=== PATIENT | female | born 1945 | race American Indian/Alaskan Native ===

== ENCOUNTER 2018-08-03 11:32 | Inpatient (IN) | payer MEDICARE ==
[~2018-08-03 11:32] MED LIST: ANCEF/STERILE WATER 2 GM/20 ML IV NR
[2018-08-03] MEDS ORDERED: DILAUDID IV NR (13:06)
[2018-08-03] MEDS ORDERED: PEPCID IV NR (13:07)
[2018-08-03] MEDS: LACTATED RINGERS 1,000 ML IV SCH ×2 (13:15→22:51)
--- NOTE | 2018-08-03 13:15 | Anesthesia Day of Surgery ---
Anesthesia Day of Surgery - Day of Surgery Patient Examined: Yes Patient H&P Reviewed: Yes Patient is NPO: Yes
--- NOTE | 2018-08-03 13:15 | Anesthesia Consultation ---
Anesthesia Consult and Med Hx Date of service: 08/03/18 - Airway Anesthetic Teeth Evaluation: Good ROM Head & Neck: Adequate Mental/Hyoid Distance: Adequate Mallampati Class: Class II Intubation Access Assessment: Good - Pulmonary Exam CTA: Yes - Cardiac Exam Cardiac Exam: No Murmur - Pre-Operative Health Status ASA Pre-Surgery Classification: ASA3 Proposed Anesthetic Plan: General - Pulmonary Hx Smoking: Yes (STOPPED 1983) Hx Asthma: Yes (DAILY INHALERS) Hx Sleep Apnea: No (PANCHITO PRE SCREEN HIGH RISK) - Cardiovascular System Hx Hypertension: Yes (X 15 YRS) Hx Angina: No - Central Nervous System CVA: Yes ("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
[2018-08-03] MEDS ORDERED: XYLOCAINE 1%/ EPI 1:100,000 INFILTRATI ONE ×2 (13:19→14:36)
[2018-08-03] MEDS ORDERED: ANTIBIOTIC OINT TP ONE ×2 (13:19→13:20)
[2018-08-03] MEDS ORDERED: MARCAINE 0.25% INFILTRATI ONE ×2 (13:19→14:35)
[2018-08-03] MEDS ORDERED: DIPRIVAN 10 MG/ML IV ONE (13:21)
[2018-08-03] MEDS ORDERED: XYLOCAINE MPF 2% ONE (13:21)
[2018-08-03] MEDS ORDERED: SUBLIMAZE ONE ×3 (13:21→16:24)
[2018-08-03] MEDS ORDERED: VERSED ONE (13:24)
[2018-08-03] MEDS ORDERED: VERSED IV SCH (13:24)
[2018-08-03] MEDS ORDERED: ZOFRAN ONE (14:26)
[2018-08-03] MEDS ORDERED: NACL 0.9% IR ONE (14:37)
[2018-08-03] MEDS ORDERED: TYLENOL PO PRN (16:41)
--- NOTE | 2018-08-03 16:41 | Post Operative Note ---
Pre-op diagnosis: fractured left ankle Post-op diagnosis: same Findings: See operative report. Procedure: ORIF left ankle, fibula Anesthesia: GETA Surgeon: SENA MICHAELS Estimated blood loss: minimal Pathology: none Condition: stable Disposition: observation
[2018-08-03] MEDS ORDERED: SODIUM CHLORIDE FLUSH SYRINGE 10 ML IV NR (17:00)
[2018-08-03] MEDS ORDERED: ZOFRAN IV PRN (17:05)
[2018-08-03] MEDS: DILAUDID IV PRN ×3 (17:10→23:52)
[2018-08-03] MEDS ORDERED: DILAUDID ONE (17:49)
--- NOTE | 2018-08-03 18:36 | Operative Report ---
SURGEON: Zeyad Mason DPM MANAGER CASE MANAGEMENT: None. PREOPERATIVE DIAGNOSIS: Fractured left ankle. POSTOPERATIVE DIAGNOSIS: Fractured left ankle. PROCEDURE: Open reduction and internal fixation, left ankle, lateral malleolus and syndesmosis. ANESTHESIA: General inhalational anesthetic with local consisting of 1% lidocaine with epinephrine and 0.25 Marcaine plain, 50:50 mixture x 10 mL. HEMOSTASIS: Pneumatic thigh tourniquet 350 mmHg x 124 minutes. ESTIMATED BLOOD LOSS: Less than 20 mL. MATERIALS: Synthes 7-hole 1/3 tubular locking plate with corresponding screws, each measuring 4 mm in diameter and a Synthes partially threaded 40 mm x 4.0 partially threaded cancellous screw and 26 gauge surgical stainless steel wire. INJECTABLES: Local as above. PATHOLOGY: None. COMPLICATIONS: None. OPERATIVE SUMMARY: On this date, the patient was deemed an appropriate surgical candidate, brought to the operating room and placed on the operating table in normal supine position. Following induction of adequate general inhalational anesthesia, the left foot, ankle, and leg were prepped and draped in the usual sterile fashion. A pneumatic thigh tourniquet was applied with padding and after exsanguination was inflated, the following procedure was then carried out. Open reduction and internal fixation of left ankle: Attention was directed to the lateral aspect of left ankle where a long linear incision was placed overlying the fibula. Dissection was carried through the skin layer down to the level of superficial fascia with care to protect neurovascular structures. Electrocautery was deemed necessary for surgical hemostasis. Dissection was carried through this layer down to the level of deep fascia. Deep fascia was notably hemorrhagic. A longitudinal incision was carried through the deep fascia to the level of the fibula. A long oblique fracture was identified and comminution was noted at the fracture piece. At this time, reduction forceps were brought in and the fracture was reduced under fluoroscopic image intensifier. Multiple attempts were made to repair with interosseous compression the fragment. Due to the orientation and severe comminution of the pieces along with osteoporotic nature of the bone, it was impossible to gain any place to fixate the lateral malleolus. I then attempted to reduce the entire fracture and maintain its alignment utilizing pins and long locking plate. Again, the fragment proved to be unstable and continued to telescope proximally. I removed all of the hardware and then reduced the fracture completely. Again, image intensifier was used to identify this. I then went ahead and placed a trans-syndesmotic screw between the lateral malleolus into the tibia at approximately a 30-degree anterior angle. This kept the distal fragment out to length. The intervening bone fragments laid relatively in decent alignment; however, again there were multiple fragmentations here. I went ahead and used 26-gauge stainless wire to then secure these pieces together. The image intensifier was used and accurate reconstruction of the joint was noted along with reduction of the medial clear space. At this time, I went ahead and placed a locking plate in standard AO fashion along the lateral malleolus. Excellent reduction was noted and excellent alignment of the joint was appreciated. The wound was flushed with copious amounts of normal sterile saline. Closure was then carried out with 3-0 Vicryl to close the periosteal and deep fascial layer, followed by 4-0 Vicryl and a 4-0 nylon suture in running fashion. Again, stress of the medial side after repair of the lateral malleolus demonstrated no opening identified. At this time, it was deemed not necessary to go forward with another incision given the extensive tourniquet time and stability of the construct. Therefore, infiltrated the lateral ankle with local mixture, applied a dry sterile dressing and tourniquet was deflated with normal capillary refill returning all the digits. A well-padded posterior splint was applied. The patient tolerated the above procedure and anesthesia well without complications. Vital signs are stable throughout. She will be admitted for 23-hour observation to [facility] for postoperative pain management and antibiotics. JOB# [id number] RUBIO/TESS
[2018-08-03] MEDS: PERCOCET 5/325 PO PRN (20:04)
[2018-08-03] MEDS ORDERED: TORADOL IV ONE (22:00)
[2018-08-03] MEDS: ANCEF/NS 1 GM/50 ML 1 GM/50 ML BAG IV SCH (23:46)
[2018-08-04] MEDS: PERCOCET 5/325 PO PRN ×3 (03:41→22:02)
[2018-08-04] MEDS: ANCEF/NS 1 GM/50 ML 1 GM/50 ML BAG IV SCH (07:04)
--- NOTE | 2018-08-04 07:41 | XRay Report ---
LEFT ANKLE, 2 VIEWS: History: Left ankle fracture. Findings: 2 fluoroscopic images of the left ankle are presented demonstrating open reduction and internal fixation of a distal fibular fracture. A screw also transverses the distal fibula and tibia. Alignment appears anatomic. There is diffuse soft tissue swelling. Impression: Open reduction and internal fixation of a left ankle fracture.
--- NOTE | 2018-08-04 12:10 | Progress Note ---
Assessment and Plan 1. S/P ORIF left ankle - Maintain NWB left side - Encouraged dangling with lunch - PO meds only for now - Instructed further pain management when she leaves will be with Dr. Youngblood; she will call their office today. - Must maintain NWB; she has walker with wheels, crutches, and a wheelchair at home - OT to see patient. Will need some assistance with transfer. she has her to help her around as well. - Patient has rx for percocet and antibiotic for use upon D/C (given at preop.) - Will be in touch with nursing regarding progress. she may go home when ready and stable, will await OT assessment. Subjective Date of service: 08/04/18 Principal diagnosis: post op ORIF left ankle Objective - Constitutional Vitals: Vital Signs - 12hr 08/04/18 08/04/18 08/04/18 00:22 03:41 04:41 Temperature Pulse Rate Pulse Rate [ Left Radial] Respiratory 16 16 17 Rate Blood Pressure O2 Sat by Pulse Oximetry 08/04/18 08/04/18 08/04/18 04:49 04:50 07:02 Temperature 98.2 F 98.2 F Pulse Rate 91 H 96 H 90 Pulse Rate [ Left Radial] Respiratory 120 H 17 18 Rate Blood Pressure 124/46 138/50 O2 Sat by Pulse 96 98 98 Oximetry 08/04/18 08/04/18 08:29 11:07 Temperature 97.9 F Pulse Rate 90 Pulse Rate [ 69 Left Radial] Respiratory 20 Rate Blood Pressure 146/57 O2 Sat by Pulse 96 98 Oximetry General appearance: Present: no acute distress - EENT Eyes: PERRL ENT: hearing intact - Respiratory Respiratory effort: normal - Breasts Breasts: deferred Extremities: no ischemia, normal temperature (Left foot elevated with ice packs, CFT 3 secs to all toes, splint clean and dry) Medications & Allergies - Medications Allergies/Adverse Reactions: Allergies AJ Inhibitors Allergy (Verified 07/21/18 16:42) Swelling Sulfa (Sulfonamide Antibiotics) Allergy (Verified 07/21/18 16:42) Swelling sulfamethoxazole [From Bactrim] Allergy (Verified 07/21/18 16:42) Swelling trimethoprim [From Bactrim] Allergy (Verified 07/21/18 16:42) Swelling Home Medications: Home Medications Medication Instructions Recorded Confirmed Last Taken Type ALBUTEROL NEB's [Proventil] 2.5 mg IH TID PRN 07/21/18 08/03/18 3 Months Ago History ~05/03/18 ALPRAZolam [Xanax] 1 mg PO BID 07/21/18 07/21/18 08/02/18 History Aspirin [Aspir-Low] 81 mg PO DAILY 07/21/18 08/03/18 2 Weeks Ago History ~07/20/18 Atenolol [Tenormin] 100 mg PO DAILY 07/21/18 07/21/18 08/02/18 History Budesonide/Formoterol Fumarate 2 puff IH DAILY 07/21/18 07/21/18 08/03/18 08:00 History [Symbicort 80-4.5 Mcg Inhaler] Cyclobenzaprine HCl [Flexeril 5 MG 5 mg PO BID 07/21/18 07/21/18 08/02/18 History TAB] Donepezil [Aricept] 10 mg PO QDAY 07/21/18 07/21/18 08/02/18 History Gabapentin [Neurontin] 300 mg PO TID 07/21/18 07/21/18 08/02/18 History Ibuprofen [Ibu] 600 mg PO PRN PRN 07/21/18 08/03/18 2 Weeks Ago History ~07/20/18 Ipratropium [place] 1 sprays IH DAILY 07/21/18 07/21/18 08/02/18 History Montelukast [Singulair] 10 mg PO QPM 07/21/18 07/21/18 08/02/18 History Omeprazole Magnesium [Prilosec Otc] 40 mg PO DAILY 07/21/18 07/21/18 08/02/18 History Potassium Chloride [K-Dur] 40 meq PO QDAY 07/21/18 07/21/18 08/02/18 History Simvastatin [Zocor] 40 mg PO QHS 07/21/18 07/21/18 08/02/18 History Venlafaxine HCl [Venlafaxine HCl 300 mg PO DAILY 07/21/18 07/21/18 08/02/18 History ER] hydroCHLOROthiazide [HCTZ] 50 mg PO QDAY 07/21/18 07/21/18 08/03/18 08:00 Histor y lamoTRIgine [Lamictal] 150 mg PO DAILY 07/21/18 07/21/18 08/02/18 History rOPINIRole [Requip] 0.25 mg PO QHS 07/21/18 07/21/18 08/02/18 History Active Medications: Generic Name Dose Route Start Last Admin Trade Name Freq PRN Reason Stop Dose Admin Acetaminophen 650 mg 08/03/18 16:41 Tylenol PO Q4H PRN Pain MILD(1-3)/Fever >100.5/POSEY Enoxaparin Sodium 40 mg 08/04/18 10:00 Lovenox SUB-Q QDAY JOSE ROBERTO Lactated Ringer's 1,000 mls @ 75 mls/hr 08/03/18 13:07 08/03/18 22:51 Lactated Ringers IV 75 mls/hr DIRECT JOSE ROBERTO Administration Morphine Sulfate 4 mg 08/03/18 16:41 Morphine IV Q4H PRN Pain , Severe (7-10) Multivitamins 1 each 08/04/18 10:00 Theragran Tab PO QDAY JOSE ROBERTO Oxycodone/Acetaminophen 2 tab 08/03/18 16:41 08/04/18 09:48 Percocet 5/325 PO 2 tab Q6H PRN Administration Pain, Moderate (4-6) Sodium Chloride 10 ml 08/03/18 17:00 Sodium Chloride Flush Syringe 10 Ml IV 08/04/18 16:59 PRN NR
[2018-08-04] MEDS: LOVENOX SUB-Q SCH (12:41)
[2018-08-04] MEDS: THERAGRAN Tab PO SCH (12:42)
[2018-08-04] MEDS: LACTATED RINGERS 1,000 ML IV SCH (12:42)
[2018-08-04] MEDS: MORPHINE IV PRN (17:35)
[2018-08-05] MEDS: PERCOCET 5/325 PO PRN ×3 (03:03→17:57)
[2018-08-05] MEDS: LACTATED RINGERS 1,000 ML IV SCH ×2 (03:03→17:52)
[2018-08-05] MEDS: MORPHINE IV PRN ×4 (09:13→20:23)
[2018-08-05] MEDS: THERAGRAN Tab PO SCH (09:54)
[2018-08-05] MEDS: LOVENOX SUB-Q SCH (09:55)
--- NOTE | 2018-08-05 15:33 | Progress Note ---
Subjective Date of service: 08/05/18 Principal diagnosis: post op ORIF left ankle Objective - Exam Narrative Exam: Patient seen at bedside, doing well. Awaiting placement for rehab. - Constitutional Vitals: Vital Signs - 12hr 08/05/18 08/05/18 08/05/18 04:28 04:29 05:40 Temperature 98.0 F Pulse Rate 85 76 78 Respiratory 17 Rate Blood Pressure 135/55 Blood Pressure 135/55 [Left] O2 Sat by Pulse 95 96 90 Oximetry 08/05/18 07:37 Temperature 98.0 F Pulse Rate 85 Respiratory 20 Rate Blood Pressure 138/64 Blood Pressure [Left] O2 Sat by Pulse 97 Oximetry Extremity abnormal: edema (Mild edema consistent with surgical repair. toes all warm and with normal cap refill.) Medications & Allergies - Medications Allergies/Adverse Reactions: Allergies AJ Inhibitors Allergy (Verified 07/21/18 16:42) Swelling Sulfa (Sulfonamide Antibiotics) Allergy (Verified 07/21/18 16:42) Swelling sulfamethoxazole [From Bactrim] Allergy (Verified 07/21/18 16:42) Swelling trimethoprim [From Bactrim] Allergy (Verified 07/21/18 16:42) Swelling Home Medications: Home Medications Medication Instructions Recorded Confirmed Last Taken Type ALBUTEROL NEB's [Proventil] 2.5 mg IH TID PRN 07/21/18 08/03/18 3 Months Ago History ~05/03/18 ALPRAZolam [Xanax] 1 mg PO BID 07/21/18 07/21/18 08/02/18 History Aspirin [Aspir-Low] 81 mg PO DAILY 07/21/18 08/03/18 2 Weeks Ago History ~07/20/18 Atenolol [Tenormin] 100 mg PO DAILY 07/21/18 07/21/18 08/02/18 History Budesonide/Formoterol Fumarate 2 puff IH DAILY 07/21/18 07/21/18 08/03/18 08:00 History [Symbicort 80-4.5 Mcg Inhaler] Cyclobenzaprine HCl [Flexeril 5 MG 5 mg PO BID 07/21/18 07/21/18 08/02/18 History TAB] Donepezil [Aricept] 10 mg PO QDAY 07/21/18 07/21/18 08/02/18 History Gabapentin [Neurontin] 300 mg PO TID 07/21/18 07/21/18 08/02/18 History Ibuprofen [Ibu] 600 mg PO PRN PRN 07/21/18 08/03/18 2 Weeks Ago History ~07/20/18 Ipratropium [place] 1 sprays IH DAILY 07/21/18 07/21/18 08/02/18 History Montelukast [Singulair] 10 mg PO QPM 07/21/18 07/21/18 08/02/18 History Omeprazole Magnesium [Prilosec Otc] 40 mg PO DAILY 07/21/18 07/21/18 08/02/18 History Potassium Chloride [K-Dur] 40 meq PO QDAY 07/21/18 07/21/18 08/02/18 History Simvastatin [Zocor] 40 mg PO QHS 07/21/18 07/21/18 08/02/18 History Venlafaxine HCl [Venlafaxine HCl 300 mg PO DAILY 07/21/18 07/21/18 08/02/18 History ER] hydroCHLOROthiazide [HCTZ] 50 mg PO QDAY 07/21/18 07/21/18 08/03/18 08:00 History lamoTRIgine [Lamictal] 150 mg PO DAILY 07/21/18 07/21/18 08/02/18 History rOPINIRole [Requip] 0.25 mg PO QHS 07/21/18 07/21/18 08/02/18 History Melatonin [Melatin] 3 mg PO HS 08/05/18 08/05/18 08/02/18 History Terbinafine (Nf) [LamiSIL] 250 mg PO QDAY 08/05/18 08/05/18 08/02/18 History Active Medications: Generic Name Dose Route Start Last Admin Trade Name Freq PRN Reason Stop Dose Admin Acetaminophen 650 mg 08/03/18 16:41 Tylenol PO Q4H PRN Pain MILD(1-3)/Fever >100.5/POSEY Enoxaparin Sodium 40 mg 08/04/18 10:00 08/05/18 09:55 Lovenox SUB-Q 40 mg QDAY JOSE ROBERTO Administration Lactated Ringer's 1,000 mls @ 75 mls/hr 08/03/18 13:07 08/05/18 03:03 Lactated Ringers IV 75 mls/hr DIRECT JOSE ROBERTO Administration Morphine Sulfate 4 mg 08/03/18 16:41 08/05/18 13:01 Morphine IV 4 mg Q4H PRN Administration Pain , Severe (7-10) Multivitamins 1 each 08/04/18 10:00 08/05/18 09:54 Theragran Tab PO 1 each QDAY JOSE ROBERTO Administration Oxycodone/Acetaminophen 2 tab 08/03/18 16:41 08/05/18 12:00 Percocet 5/325 PO 2 tab Q6H PRN Administration Pain, Moderate (4-6)
[2018-08-05] MEDS ORDERED: IBUPROFEN PO PRN (21:12)
[2018-08-05] MEDS ORDERED: PROVENTIL IH PRN (21:12)
--- NOTE | 2018-08-05 21:12 | Consultation ---
History of Present Illness - Reason for Consult Consult date: 08/05/18 medical management Requesting physician: SENA MICHAELS - History of Present Illness S/p ORIF left ankle, fibula--post op doing well.Patient has multiple medical problems including COPD, mild dementia, generalized anxiety disorder ,neuropathy hyperlipidemia ,depression and GERD. No shortness of breath. No chest pain. Patient lying comfortable in the bed. Past History Past Medical History: COPD, GERD, hypertension, hyperlipidemia Past Surgical History: Other (left ankle ORIF) Social history: no significant social history, lives with family, full code Family history: hypertension Medications and Allergies Allergies Allergy/AdvReac Type Severity Reaction Status Date / Time AJ Inhibitors Allergy Swelling Verified 07/21/18 16:42 Sulfa (Sulfonamide Allergy Swelling Verified 07/21/18 16:42 Antibiotics) sulfamethoxazole Allergy Swelling Verified 07/21/18 16:42 [From Bactrim] trimethoprim [From Bactrim] Allergy Swelling Verified 07/21/18 16:42 Home Medications Medication Instructions Recorded Confirmed Last Taken Type ALBUTEROL NEB's [Proventil] 2.5 mg IH TID PRN 07/21/18 08/03/18 3 Months Ago History ~05/03/18 ALPRAZolam [Xanax] 1 mg PO BID 07/21/18 07/21/18 08/02/18 History Aspirin [Aspir-Low] 81 mg PO DAILY 07/21/18 08/03/18 2 Weeks Ago History ~07/20/18 Atenolol [Tenormin] 100 mg PO DAILY 07/21/18 07/21/18 08/02/18 History Budesonide/Formoterol Fumarate 2 puff IH DAILY 07/21/18 07/21/18 08/03/18 08:00 History [Symbicort 80-4.5 Mcg Inhaler] Cyclobenzaprine HCl [Flexeril 5 MG 5 mg PO BID 07/21/18 07/21/18 08/02/18 Histor y TAB] Donepezil [Aricept] 10 mg PO QDAY 07/21/18 07/21/18 08/02/18 History Gabapentin [Neurontin] 300 mg PO TID 07/21/18 07/21/18 08/02/18 History Ibuprofen [Ibu] 600 mg PO PRN PRN 07/21/18 08/03/18 2 Weeks Ago History ~07/20/18 Ipratropium [place] 1 sprays IH DAILY 07/21/18 07/21/18 08/02/18 History Montelukast [Singulair] 10 mg PO QPM 07/21/18 07/21/18 08/02/18 History Omeprazole Magnesium [Prilosec Otc] 40 mg PO DAILY 07/21/18 07/21/18 08/02/18 History Potassium Chloride [K-Dur] 40 meq PO QDAY 07/21/18 07/21/18 08/02/18 History Simvastatin [Zocor] 40 mg PO QHS 07/21/18 07/21/18 08/02/18 History Venlafaxine HCl [Venlafaxine HCl 300 mg PO DAILY 07/21/18 07/21/18 08/02/18 History ER] hydroCHLOROthiazide [HCTZ] 50 mg PO QDAY 07/21/18 07/21/18 08/03/18 08:00 History lamoTRIgine [Lamictal] 150 mg PO DAILY 07/21/18 07/21/18 08/02/18 History rOPINIRole [Requip] 0.25 mg PO QHS 07/21/18 07/21/18 08/02/18 History Melatonin [Melatin] 3 mg PO HS 08/05/18 08/05/18 08/02/18 History Terbinafine (Nf) [LamiSIL] 250 mg PO QDAY 08/05/18 08/05/18 08/02/18 History Active Meds: Active Medications Acetaminophen (Tylenol) 650 mg PO Q4H PRN PRN Reason: Pain MILD(1-3)/Fever >100.5/POSEY Enoxaparin Sodium (Lovenox) 40 mg SUB-Q QDAY [facility] Last Admin: 08/05/18 09:55 Dose: 40 mg Documented by: Lactated Ringer's (Lactated Ringers) 1,000 mls @ 75 mls/hr IV DIRECT [facility] Last Admin: 08/05/18 17:52 Dose: 75 mls/hr Documented by: Morphine Sulfate (Morphine) 4 mg IV Q4H PRN PRN Reason: Pain , Severe (7-10) Last Admin: 08/05/18 20:23 Dose: 4 mg Documented by: Multivitamins (Theragran Tab) 1 each PO QDAY JOSE ROBERTO Last Admin: 08/05/18 09:54 Dose: 1 each Documented by: Oxycodone/Acetaminophen (Percocet 5/325) 2 tab PO Q6H PRN PRN Reason: Pain, Moderate (4-6) Last Admin: 08/05/18 17:57 Dose: 2 tab Documented by: Review of Systems All systems: negative Musculoskeletal: other (left ankle pain) Exam - Constitutional Vitals: Temp Pulse Resp BP Pulse Ox 98.5 F 84 20 136/41 96 08/05/18 16:16 08/05/18 16:16 08/05/18 16:16 08/05/18 16:16 08/05/18 16:16 General appearance: Present: no acute distress, well-nourished - EENT Eyes: Present: PERRL ENT: hearing intact, clear oral mucosa - Neck Neck: Present: supple, normal ROM - Respiratory Respiratory effort: normal Respiratory: bilateral: CTA - Cardiovascular Heart rate: 78 Rhythm: regular Heart Sounds: Present: S1 & S2. Absent: rub, click - Extremities Extremities: pulses symmetrical, No edema Peripheral Pulses: within normal limits - Abdominal General gastrointestinal: Present: soft, non-tender, non-distended, normal bowel sounds Female genitourinary: Present: normal - Rectal Rectal Exam: deferred - Integumentary Integumentary: Present: clear, warm, dry - Musculoskeletal Musculoskeletal: gait normal, strength equal bilaterally - Psychiatric Psychiatric: appropriate mood/affect, intact judgment & insight - Neurologic Neurologic: CNII-XII intact, moves all extremities - Allied Health Allied health notes reviewed: nursing, case management Assessment and Plan - Patient Problems (1) Hypertension Current Visit: Yes Status: Chronic Qualifiers: Hypertension type: essential hypertension Qualified Code(s): I10 - Essential (primary) hypertension Plan to address problem: Continue atenolol and hydrochlorothiazide (2) COPD (chronic obstructive pulmonary disease) Current Visit: Yes Status: Chronic Qualifiers: COPD type: unspecified COPD Qualified Code(s): J44.9 - Chronic obstructive pulmonary disease, unspecified Plan to address problem: Resume Symbicort and Singulair and ipratropium (3) Generalized anxiety disorder Current Visit: Yes Status: Chronic Plan to address problem: Resume Xanax 1 mg twice a day (4) Hyperlipidemia Current Visit: Yes Status: Chronic Qualifiers: Hyperlipidemia type: mixed hyperlipidemia Qualified Code(s): E78.2 - Mixed hyperlipidemia Plan to address problem: Continue statins (5) Peripheral neuropathy Current Visit: Yes Status: Chronic Qualifiers: Peripheral neuropathy type: polyneuropathy, unspecified Qualified Code(s): G62.9 - Polyneuropathy, unspecified Plan to address problem: Continue gabapentin (6) GERD (gastroesophageal reflux disease) Current Visit: Yes Status: Chronic Qualifiers: Esophagitis presence: without esophagitis Qualified Code(s): K21.9 - Gastro-esophageal reflux disease without esophagitis Plan to address problem: Continue PPIs (7) Depression Current Visit: Yes Status: Chronic Qualifiers: Depression Type: unspecified Qualified Code(s): F32.9 - Major depressive disorder, single episode, unspecified Plan to address problem: Continue Effexor (8) Surgery follow-up Current Visit: Yes Status: Acute Plan to address problem: ORIF left ankle Postop doing well (9) DVT prophylaxis Current Visit: Yes Status: Acute Plan to address problem: Patient on SCDs
[2018-08-05] MEDS ORDERED: FORMOTEROL FUMARATE IH SCH (21:15)
[2018-08-05] MEDS ORDERED: BUDESONIDE IH SCH (21:15)
[2018-08-05] MEDS ORDERED: IPRATROPIUM BROMIDE IH SCH (21:15)
[2018-08-05] MEDS: XANAX PO SCH (22:53)
[2018-08-05] MEDS: K-DUR PO SCH (22:54)
[2018-08-05] MEDS: HCTZ PO SCH (22:54)
[2018-08-05] MEDS: PRAVACHOL PO SCH (22:54)
[2018-08-05] MEDS: EFFEXOR XR PO SCH (22:54)
[2018-08-05] MEDS: LaMICtal PO SCH ×2 (22:54→23:20)
[2018-08-05] MEDS: FLEXERIL PO SCH (22:55)
[2018-08-05] MEDS: REQUIP PO SCH (22:55)
[2018-08-05] MEDS: HALFPRIN EC PO SCH (22:55)
[2018-08-05] MEDS: TENORMIN PO SCH (23:19)
[2018-08-05] MEDS: PROTONIX PO SCH (23:23)
[2018-08-05] MEDS: NON-FORMULARY (Melatonin [Melatin] 3 MG) PO SCH (23:43)
--- NOTE | 2018-08-06 08:01 | Progress Note ---
Assessment and Plan 1. S/P ORIF left ankle, POD 3 doing well. Awaiting transfer to rehab facility. - Maintain NWB left side - Encouraged dangling with meals - PO meds only for now - Instructed further pain management when she leaves will be with Dr. Youngblood; she is to schedule appointment as outpatient. - Must maintain NWB; she has walker with wheels, crutches, and a wheelchair at home - OT to see patient. Will need some assistance with transfer. she has her to help her around as well. - Patient has rx for percocet and antibiotic for use upon D/C (given at preop.) - Will be in touch with nursing regarding progress. she may go home when ready and stable, will wire orders for discharge today pending case management arranging outpatient placement. Subjective Date of service: 08/06/18 Principal diagnosis: post op ORIF left ankle Objective - Constitutional Vitals: Vital Signs - 12hr 08/05/18 08/06/18 20:54 05:03 Temperature 98.7 F 97.3 F L Pulse Rate 73 Respiratory 20 18 Rate Blood Pressure 130/49 119/48 O2 Sat by Pulse 92 Oximetry General appearance: Present: no acute distress - EENT Eyes: PERRL ENT: hearing intact - Respiratory Respiratory effort: normal Extremity abnormal: other (Cast clean and dry, toes warm, elevated on pillow.) - Neurologic Neurologic: CNII-XII intact - Psychiatric Psychiatric: appropriate mood/affect Medications & Allergies - Medications Allergies/Adverse Reactions: Allergies AJ Inhibitors Allergy (Verified 07/21/18 16:42) Swelling Sulfa (Sulfonamide Antibiotics) Allergy (Verified 07/21/18 16:42) Swelling sulfamethoxazole [From Bactrim] Allergy (Verified 07/21/18 16:42) Swelling trimethoprim [From Bactrim] Allergy (Verified 07/21/18 16:42) Swelling Home Medications: Home Medications Medication Instructions Recorded Confirmed Last Taken Type ALBUTEROL NEB's [Proventil] 2.5 mg IH TID PRN 07/21/18 08/03/18 3 Months Ago History ~05/03/18 ALPRAZolam [Xanax] 1 mg PO BID 07/21/18 07/21/18 08/02/18 History Aspirin [Aspir-Low] 81 mg PO DAILY 07/21/18 08/03/18 2 Weeks Ago History ~07/20/18 Atenolol [Tenormin] 100 mg PO DAILY 07/21/18 07/21/18 08/02/18 History Budesonide/Formoterol Fumarate 2 puff IH DAILY 07/21/18 07/21/18 08/03/18 08:00 History [Symbicort 80-4.5 Mcg Inhaler] Cyclobenzaprine HCl [Flexeril 5 MG 5 mg PO BID 07/21/18 07/21/18 08/02/18 History TAB] Donepezil [Aricept] 10 mg PO QDAY 07/21/18 07/21/18 08/02/18 History Gabapentin [Neurontin] 300 mg PO TID 07/21/18 07/21/18 08/02/18 History Ibuprofen [Ibu] 600 mg PO PRN PRN 07/21/18 08/03/18 2 Weeks Ago History ~07/20/18 Ipratropium [place] 1 sprays IH DAILY 07/21/18 07/21/18 08/02/18 History Montelukast [Singulair] 10 mg PO QPM 07/21/18 07/21/18 08/02/18 History Omeprazole Magnesium [Prilosec Otc] 40 mg PO DAILY 07/21/18 07/21/18 08/02/18 History Potassium Chloride [K-Dur] 40 meq PO QDAY 07/21/18 07/21/18 08/02/18 History Simvastatin [Zocor] 40 mg PO QHS 07/21/18 07/21/18 08/02/18 History Venlafaxine HCl [Venlafaxine HCl 300 mg PO DAILY 07/21/18 07/21/18 08/02/18 History ER] hydroCHLOROthiazide [HCTZ] 50 mg PO QDAY 07/21/18 07/21/18 08/03/18 08:00 History lamoTRIgine [Lamictal] 150 mg PO DAILY 07/21/18 07/21/18 08/02/18 History rOPINIRole [Requip] 0.25 mg PO QHS 07/21/18 07/21/18 08/02/18 History Melatonin [Melatin] 3 mg PO HS 08/05/18 08/05/18 08/02/18 History Terbinafine (Nf) [LamiSIL] 250 mg PO QDAY 08/05/18 08/05/18 08/02/18 History Active Medications: Generic Name Dose Route Start Last Admin Trade Name Freq PRN Reason Stop Dose Admin Acetaminophen 650 mg 08/03/18 16:41 Tylenol PO Q4H PRN Pain MILD(1-3)/Fever >100.5/POSEY Albuterol 2.5 mg 08/05/18 21:12 Proventil IH TIDRT PRN Wheezing Alprazolam 1 mg 08/05/18 22:00 08/05/18 22:53 Xanax PO 1 mg BID JOSE ROBERTO Administration Arformoterol Tartrate 15 mcg 08/06/18 08:00 Brovana Nebu IH Q12HRT [facility] Aspirin 81 mg 08/05/18 22:00 08/05/18 22:55 Halfprin Ec PO 81 mg DAILY JOSE ROBERTO Administration Atenolol 100 mg 08/05/18 21:15 08/05/18 23:19 Tenormin PO 100 mg DAILY JOSE ROBERTO Administration Budesonide 0.5 mg 08/06/18 08:00 Pulmicort Q12HRT [facility] Cyclobenzaprine HCl 5 mg 08/05/18 22:00 08/05/18 22:55 Flexeril PO 5 mg BID JOSE ROBERTO Administration Docusate Sodium 100 mg 08/06/18 10:00 Colace PO BID JOSE ROBERTO Donepezil HCl 10 mg 08/06/18 10:00 Aricept PO QDAY JOSE ROBERTO Enoxaparin Sodium 40 mg 08/04/18 10:00 08/05/18 09:55 Lovenox SUB-Q 40 mg QDAY JOSE ROBERTO Administration Gabapentin 300 mg 08/06/18 08:00 Neurontin PO TID JOSE ROBERTO Hydrochlorothiazide 50 mg 08/05/18 22:00 08/05/18 22:54 Hctz PO 50 mg QDAY JOSE ROBERTO Administration Lactated Ringer's 1,000 mls @ 75 mls/hr 08/03/18 13:07 08/05/18 17:52 Lactated Ringers IV 75 mls/hr DIRECT JOSE ROBERTO Administration Ibuprofen 600 mg 08/05/18 21:12 08/05/18 22:52 Motrin PO 600 mg Q8H PRN Administration Pain, Mild (1-3) Ipratropium [place] 0.5 mg 08/06/18 10:00 Atrovent IH QDAY JOSE ROBERTO Lamotrigine 100 mg 08/05/18 21:15 08/05/18 23:20 Lamictal PO 100 mg DAILY JOSE ROBERTO Administration Lamotrigine 50 mg 08/05/18 21:30 08/05/18 22:54 Lamictal PO 50 mg QDAY JOSE ROBERTO Administration Miscellaneous Medication 3 mg 08/05/18 22:00 08/05/18 23:43 Melatonin [Melatin] PO 3 mg HS JOSE ROBERTO Administration Montelukast Sodium 10 mg 08/06/18 18:00 Singulair PO QPM JOSE ROBERTO Morphine Sulfate 4 mg 08/03/18 16:41 08/05/18 20:23 Morphine IV 4 mg Q4H PRN Administration Pain , Severe (7-10) Multivitamins 1 each 08/04/18 10:00 08/05/18 09:54 Theragran Tab PO 1 each QDAY JOSE ROBERTO Administration Oxycodone/Acetaminophen 2 tab 08/03/18 16:41 08/05/18 17:57 Percocet 5/325 PO 2 tab Q6H PRN Administration Pain, Moderate (4-6) Pantoprazole Sodium 40 mg 08/05/18 21:15 08/05/18 23:23 Protonix PO 40 mg DAILY JOSE ROBERTO Administration Potassium Chloride 40 meq 08/05/18 22:00 08/05/18 22:54 K-Dur PO 40 meq QDAY JOSE ROBERTO Administration Pravastatin Sodium 80 mg 08/05/18 22:00 08/05/18 22:54 Pravachol PO 80 mg QHS JOSE ROBERTO Administration Ropinirole HCl 0.25 mg 08/05/18 22:00 08/05/18 22:55 Requip PO 0.25 mg QHS JOSE ROBERTO Administration Venlafaxine HCl 300 mg 08/05/18 21:15 08/05/18 22:54 Effexor Xr PO 300 mg DAILY JOSE ROBERTO Administration
[2018-08-06] MEDS: MORPHINE IV PRN ×3 (09:04→20:42)
[2018-08-06] MEDS: EFFEXOR XR PO SCH (09:09)
[2018-08-06] MEDS: NEURONTIN PO SCH ×3 (09:10→20:44)
[2018-08-06] MEDS: ARICEPT PO SCH (09:10)
[2018-08-06] MEDS: HALFPRIN EC PO SCH (09:11)
[2018-08-06] MEDS: FLEXERIL PO SCH ×2 (09:12→21:48)
[2018-08-06] MEDS: K-DUR PO SCH (09:14)
[2018-08-06] MEDS: THERAGRAN Tab PO SCH (09:14)
[2018-08-06] MEDS: COLACE PO SCH ×2 (09:17→21:47)
[2018-08-06] MEDS: HCTZ PO SCH (09:19)
[2018-08-06] MEDS: TENORMIN PO SCH (09:19)
[2018-08-06] MEDS: PROTONIX PO SCH (09:20)
[2018-08-06] MEDS: XANAX PO SCH ×2 (09:21→21:47)
[2018-08-06] MEDS: LOVENOX SUB-Q SCH (09:27)
[2018-08-06] MEDS: PULMICORT IH SCH ×2 (09:47→20:34)
[2018-08-06] MEDS: BROVANA NEBU IH SCH ×2 (09:47→20:34)
[2018-08-06] MEDS ORDERED: ATROVENT IH SCH (10:00)
[2018-08-06] MEDS: LaMICtal PO SCH ×2 (14:44)
--- NOTE | 2018-08-06 16:35 | Progress Note ---
Assessment and Plan Assessment and plan: 73-year-old woman who presented with a right ankle fracture Past medical history includes COPD, mild dementia, ROC, neuropathy, hyperlipidemia, depression and GERD Problems Right ankle fracture Hypertension COPD ROC Hyperlipidemia Peripheral neuropathy GERD Depression Plan Status post ORIF on August 03, management per orthopedic surgery Continue meds for her chronic conditions DVT prophylaxis per surgery History Interval history: Right ankle pain is well controlled on pain medications Review of systems Constitutional: No fevers, no malaise, no joint pains CVS: No chest pain, no orthopnea, no dyspnea on exertion, no pedal edema GI: No abdominal pain, no diarrhea, no vomiting, no constipation Respiratory: No shortness of breath, no wheezing, no coughing Hospitalist Physical - Physical exam Narrative exam: General.: Appears well, no distress, nontoxic HEENT: Moist mucous membranes, extraocular muscles intact, no lymphadenopathy Neck: supple Cardiac: S1-S2 heard Lungs: clear to auscultation bilaterally Abdomen: soft , nontender, nondistended, bowel sounds positive Extremities: Right ankle is immobilized Skin: no rash or lesions Neurologic: no gross focal deficits Psych: calm, and cooperative - Constitutional Vitals: Temp Pulse Resp BP Pulse Ox 97.3 F L 77 18 117/44 99 08/06/18 08:04 08/06/18 10:08 08/06/18 10:08 08/06/18 08:04 08/06/18 08:04 General appearance: Present: no acute distress Results - Labs Labs: Laboratory Last Values POC Glucose 85 (70-105) 08/03/18 22:14
[2018-08-06] MEDS: SINGULAIR PO SCH (20:44)
[2018-08-06] MEDS: LACTATED RINGERS 1,000 ML IV SCH (21:47)
[2018-08-06] MEDS: REQUIP PO SCH (21:48)
[2018-08-06] MEDS: PRAVACHOL PO SCH (21:48)
[2018-08-06] MEDS: NON-FORMULARY (Melatonin [Melatin] 3 MG) PO SCH (22:00)
[2018-08-07] MEDS: NEURONTIN PO SCH ×2 (08:41→13:37)
[2018-08-07] MEDS: MORPHINE IV PRN (08:41)
[2018-08-07] MEDS: BROVANA NEBU IH SCH (09:02)
[2018-08-07] MEDS: PULMICORT IH SCH (09:02)
[2018-08-07] MEDS: THERAGRAN Tab PO SCH (09:44)
[2018-08-07] MEDS: HCTZ PO SCH (09:44)
[2018-08-07] MEDS: COLACE PO SCH (09:44)
[2018-08-07] MEDS: EFFEXOR XR PO SCH (09:44)
[2018-08-07] MEDS: K-DUR PO SCH (09:44)
[2018-08-07] MEDS: XANAX PO SCH (09:44)
[2018-08-07] MEDS: HALFPRIN EC PO SCH (09:44)
[2018-08-07] MEDS: PROTONIX PO SCH (09:44)
[2018-08-07] MEDS: ARICEPT PO SCH ×2 (09:45→10:01)
[2018-08-07] MEDS: TENORMIN PO SCH (09:45)
[2018-08-07] MEDS: FLEXERIL PO SCH (09:45)
[2018-08-07] MEDS: LaMICtal PO SCH ×2 (09:45→09:49)
[2018-08-07] MEDS: LOVENOX SUB-Q SCH (09:45)
[2018-08-07] MEDS: LACTATED RINGERS 1,000 ML IV SCH (09:50)
--- NOTE | 2018-08-07 12:38 | Progress Note ---
Assessment and Plan Assessment and plan: 73-year-old woman who presented with a right ankle fracture Past medical history includes COPD, mild dementia, ROC, neuropathy, hyperlipidemia, depression and GERD Problems Right ankle fracture Hypertension COPD ROC Hyperlipidemia Peripheral neuropathy GERD Depression morbid obesity Plan Status post ORIF on August 03, management per orthopedic surgery Continue meds for her chronic conditions DVT prophylaxis per surgery dairy husbandry worker consult, counseled about diet and lifestyle modification medically stable for dc per primary team History Interval history: Right ankle pain is well controlled on pain medications Review of systems Constitutional: No fevers, no malaise, no joint pains CVS: No chest pain, no orthopnea, no dyspnea on exertion, no pedal edema GI: No abdominal pain, no diarrhea, no vomiting, no constipation Respiratory: No shortness of breath, no wheezing, no coughing Hospitalist Physical - Physical exam Narrative exam: General.: Appears well, no distress, nontoxic HEENT: Moist mucous membranes, extraocular muscles intact, no lymphadenopathy Neck: supple Cardiac: S1-S2 heard Lungs: clear to auscultation bilaterally Abdomen: soft , nontender, nondistended, bowel sounds positive Extremities: Right ankle is immobilized Skin: no rash or lesions Neurologic: no gross focal deficits Psych: calm, and cooperative - Constitutional Vitals: Temp Pulse Resp BP Pulse Ox 98.3 F 76 20 122/69 98 08/07/18 08:57 08/07/18 09:12 08/07/18 09:12 08/07/18 08:57 08/07/18 08:57 General appearance: Present: no acute distress Results - Labs Labs: Laboratory Last Values POC Glucose 85 (70-105) 08/03/18 22:14
[2018-08-07] MEDS: PERCOCET 5/325 PO PRN (13:37)
--- NOTE | 2018-08-07 16:33 | Discharge Summary ---
Providers - Providers Date of Admission: 08/05/18 11:34 Attending physician: SENA MICHAELS 08/04/18 14:41 Physical Therapy Evaluation and Treat [CONS] Routine Comment: Reason For Exam: transfer training 08/05/18 15:30 Consult to Physician [CONS] Routine Comment: Consulting Provider: SENA MICHAELS Physician Instructions: Hospitalist consult please for full admission Reason For Exam: medical management 08/07/18 12:38 Occupational Therapy Evaluate and Treat [CONS] Routine Comment: Reason For Exam: functional deficit Primary care physician: NELLA CHEUNG Hospitalization Hospital course: 73-year-old woman who presented with a right ankle fracture Past medical history includes COPD, mild dementia, ROC, neuropathy, hyperlipidemia, depression and GERD Problems Right ankle fracture Hypertension COPD ROC Hyperlipidemia Peripheral neuropathy GERD Depression morbid obesity Hospital course Status post ORIF on August 03, management per orthopedic surgery she received PT and pain meds Continued her meds for her chronic conditions substation technician consult, counseled about diet and lifestyle modification medically stable for dc per primary team DC to [facility] to continue therapy Disposition: DC/TX- IN REHAB FACILITY Time spent for discharge: 33 mins Core Measure Documentation - Palliative Care Palliative Care/ Comfort Measures: Not Applicable - Core Measures Any of the following diagnoses?: none Exam - Physical Exam Narrative exam: General.: Appears well, no distress, nontoxic HEENT: Moist mucous membranes, extraocular muscles intact, no lymphadenopathy Neck: supple Cardiac: S1-S2 heard Lungs: clear to auscultation bilaterally Abdomen: soft , nontender, nondistended, bowel sounds positive Extremities: Right ankle is immobilized Skin: no rash or lesions Neurologic: no gross focal deficits Psych: calm, and cooperative - Constitutional Vitals: Temp Pulse Resp BP Pulse Ox 98.2 F 80 14 135/48 100 08/07/18 12:53 08/07/18 12:53 08/07/18 12:53 08/07/18 12:53 08/07/18 12:53 General appearance: Present: well-nourished - EENT Eyes: Present: PERRL ENT: hearing intact, clear oral mucosa - Neck Neck: Present: supple, normal ROM - Cardiovascular Heart Sounds: Present: click Plan Follow up with: NELLA CHEUNG MD [Primary Care Provider] - 7 Days
[2018-08-07] MEDS: SINGULAIR PO SCH (17:36)
[2018-08-09 11:41] VITALS: BP 125/33
== END 2018-08-07 18:28 | DRG 493 ==
LOC: OR 11:32 → 3B-SURG 11:34 → OBSVTOIN 08-05 11:34
PROVIDERS: ADMIT Podiatrist Foot & Ankle Surgery; ATTEND Podiatrist Foot & Ankle Surgery
PROC: 0QSK04Z Reposition Left Fibula with Internal Fixation Device, Open Approach (ICD-10-PCS; principal; 2018-08-03)
DX: S82.62XA Displaced fracture of lateral malleolus of left fibula, initial encounter for closed fracture (principal); Z68.41 Body mass index [BMI] 40.0-44.9, adult; E66.01 Morbid (severe) obesity due to excess calories; I10 Essential (primary) hypertension; J44.9 Chronic obstructive pulmonary disease, unspecified; F03.90 Unspecified dementia, unspecified severity, without behavioral disturbance, psychotic disturbance, mood disturbance, and anxiety; F41.1 Generalized anxiety disorder; G62.9 Polyneuropathy, unspecified; F32.9 Major depressive disorder, single episode, unspecified; K21.9 Gastro-esophageal reflux disease without esophagitis; E78.2 Mixed hyperlipidemia; Z82.49 Family history of ischemic heart disease and other diseases of the circulatory system; Z87.891 Personal history of nicotine dependence; Z86.73 Personal history of transient ischemic attack (TIA), and cerebral infarction without residual deficits; Z85.9 Personal history of malignant neoplasm, unspecified; Z88.2 Allergy status to sulfonamides; Z79.82 Long term (current) use of aspirin; Z79.899 Other long term (current) drug therapy; Y93.89 Activity, other specified; Y92.89 Other specified places as the place of occurrence of the external cause; Y99.8 Other external cause status
CPT/HCPCS: 82962; 94640; G0378; A9270-GY; C1713; J0690; J1170; J1650; J1885; J2250; J2270; J2405; J2704; J3010; J7120